=== PATIENT | female | born 1960 | race Caucasian/White ===

== ENCOUNTER 2024-01-23 12:11 | Emergency (ER) | payer MEDICAID ==
[~2024-01-23] VITALS: Ht 157.5 cm; Wt 65.9 kg
[2024-01-23 12:26] VITALS: BP 116/97; PULSE 66; RESP 18; TEMP 98; O2SAT 100
[2024-01-23] MEDS: LIDOCAINE 1% 10 ML VIAL PERC ONE (14:51)
[2024-01-23] MEDS: POVIDONE-IODINE 10% 15 ML SOLUTION UD TP ONE (14:51)
[2024-01-23] MEDS ORDERED: IBUP-1492 PO (15:44)
[2024-01-23] MEDS ORDERED: SULF-261 PO (15:44)
== END 2024-01-23 16:08 | disposition home or self-care (01) ==
LOC: EMS 12:19
DX: L02.212 Cutaneous abscess of back [any part, except buttock and flank] (principal); L03.312 Cellulitis of back [any part except buttock and flank]; R22.2 Localized swelling, mass and lump, trunk
CPT/HCPCS: 99283; 10060; J3490; A4247